=== PATIENT | female | born 1970 | race African-American/Black ===

== ENCOUNTER 2022-08-02 21:58 | Emergency (ER) | payer OTHER, BC ==
[2022-08-02] MEDS ORDERED: ACETAMINOPHEN 500 MG TABLET (FP) PO ONE (22:19)
[2022-08-02] MEDS ORDERED: ACETAMINOPHEN 500 MG TABLET (FP) ONE (22:25)
[2022-08-02 22:39] VITALS: BP 142/69; PULSE 97; RESP 18; TEMP 98; BMI 49.7
== END 2022-08-03 00:43 | disposition home or self-care (01) ==
LOC: FER 21:58
DX: S16.1XXA Strain of muscle, fascia and tendon at neck level, initial encounter (principal); R51.9 Headache, unspecified; V49.9XXA Car occupant (driver) (passenger) injured in unspecified traffic accident, initial encounter
CPT/HCPCS: 70450-TC; 72050-TC-FY; 99284-25

== ENCOUNTER 2024-01-15 14:38 | Emergency (ER) | payer OTHER, BC ==
[2024-01-15 15:07] VITALS: RESP 18; BMI 49.5
[2024-01-15] MEDS ORDERED: ACETAMINOPHEN 500 MG TABLET (FP) ONE (15:13)
[2024-01-15] MEDS ORDERED: predniSONE 20 MG TABLET (UD) ONE (15:13)
[2024-01-15] MEDS ORDERED: ALBUTEROL SO4 2.5/IPRATROPIUM 0.5 INH SOL 3 ML VIAL.NEB. NEB ONE (15:14)
[2024-01-15] MEDS: ACETAMINOPHEN 500 MG TABLET (FP) PO ONE (15:16)
[2024-01-15] MEDS: ALBUTEROL SO4 2.5/IPRATROPIUM 0.5 INH SOL 3 ML VIAL.NEB. NEB ONE (15:16)
[2024-01-15] MEDS: predniSONE 20 MG TABLET (UD) PO ONE (15:16)
[2024-01-15] MEDS ORDERED: ALBUTEROL SO4 0.083% IH SOL 2.5 MG/3 ML VIAL.NEB. NEB ONE ×2 (16:03→16:04)
[2024-01-15 16:37] LABS: THROAT:GRP A STREP NOT DETECTED (NOTDETECTED)
[2024-01-15 16:46] VITALS: BP 103/66; PULSE 115; TEMP 99.9
== END 2024-01-15 17:19 | disposition home or self-care (01) ==
LOC: FER 14:38
PROC: 3E0F7GC Introduction of Other Therapeutic Substance into Respiratory Tract, Via Natural or Artificial Opening (ICD-10-PCS; principal; 2024-01-15)
DX: J45.901 Unspecified asthma with (acute) exacerbation (principal); J06.9 Acute upper respiratory infection, unspecified; R50.9 Fever, unspecified; R09.81 Nasal congestion; M79.10 Myalgia, unspecified site; R05.9 Cough, unspecified; R06.02 Shortness of breath; R00.0 Tachycardia, unspecified; Z20.822 Contact with and (suspected) exposure to COVID-19
CPT/HCPCS: 0241U-QW; 71046-TC-FY; 87651; 99284-25